=== PATIENT | female | born 1945 | race Caucasian/White ===

== ENCOUNTER 2020-07-29 11:20 | Inpatient (IN) | payer MEDICARE, SELFPAY ==
[2020-07-29] VITALS (16 sets, daily range): BP systolic 108–139; BP diastolic 51–97; PULSE 62–94; RESP 14–18; TEMP 36.7–37; O2SAT 92–99; BMI 24.7
--- NOTE | ~2020-07-29 | CT_ITS ---
EXAMINATION: CT abdomen pelvis w con EXAM DATE: 07/29/2020 12:16 INDICATION: Blood in stool. Low abdominal pain, bloating. TECHNIQUE: Spiral CT of the abdomen and pelvis was performed following intravenous injection of 100 m L Omnipaque 350. Axial, coronal and sagittal images were reviewed. The dose-length product (DLP) fo r this examination was 274.88 mGy-cm. The exposure was tailored according to patient size (auto mA e xposure control), and iterative reconstruction (ASIR) was used as additional dose reduction technique . Comparison is made to prior examination from 11/28/2015. FINDINGS: Again there is large hiatal hernia containing both the stomach. Compared to prior study loo p of the transverse colon is also now extending into this hernia. There is narrow hernia mouth, proba mercedes some chronic low-grade obstruction to the stomach and colon, but no dilated bowel or distended st omach on this exam. There is extensive perisigmoid fat stranding, most likely acute uncomplicated diverticulitis or colit is. Inflammatory cancer not excludable. No organized abscess or free intraperitoneal gas. Again there are multiple mesenteric lymph nodes which are upper limits of normal in size, improved in size sangeetha red to previous examination, but have adjacent fat stranding, inflammation. Could be mesenteric adeni tis or malignancy if patient has been treated with chemotherapy. The liver, spleen, adrenal glands and pancreas are unremarkable. Gallbladder is unremarkable. No bi liary obstruction. Again there is mild chronic bilateral hydronephrosis of uncertain underlying etio logy given normal ureter size and no nephrolithiasis. The uterus is not identified and has likely be en surgically resected. Some diffuse bladder wall thickening, could indicate chronic cystitis. Acute cystitis not excludable. There is no retroperitoneal or pelvic lymphadenopathy. There is moderate to severe scattered arteriosclerotic disease. Right basilar subsegmental atelectasis. There are no osteoblastic or osteolytic lesions identified. IMPRESSION: 1. Extensive pelvic inflammation likely acute diverticulitis or colitis. Inflammatory cancer not exc ludable. 2. Mesenteric lymphadenopathy with adjacent inflammation and interval decrease in size, most likely reactive, panniculitis (could be treated malignancy if there is such history). 3. Chronic mild bilateral hydronephrosis. 4. Intrathoracic stomach and also transverse colon likely low-grade chronic obstruction given the na rrow hernia mouth. Reviewed, dictated and finalized at location A. IMPRESSION: 1. Extensive pelvic inflammation likely acute diverticulitis or colitis. Infla mmatory cancer not excludable. 2. Mesenteric lymphadenopathy with adjacent inflammation and interval decrease in size, most likely reactive, panniculitis (could be treated malignancy if th ere is such history). 3. Chronic mild bilateral hydronephrosis. 4. Intrathoracic stomach and also transverse colon likely low-grade chronic ob struction given the narrow hernia mouth.
--- NOTE | 2020-07-29 11:38 | ED.ABDPAIN ---
HPI - Abdominal Pain General Chief Complaint: Abdominal Pain Stated Complaint: abd pain/bloody stools Time Seen by Provider: 07/29/20 11:31 Source: RN notes reviewed History of Present Illness HPI narrative: Patient presents to emergency department from home for abdominal pain. Patient states symptoms began 5 days ago pain is mild bilateral lower abdomen described as cramping. States is been associated with jellylike stool. She denies any fevers or chills chest pain shortness of breath vomiting or any other symptoms. States she was seen in the urgent care 4 days ago was diagnosed with UTI and started on Macrobid with no improvement of her symptoms. She last took Tylenol yesterday for her pain Related Data Home Medications Medication Instructions Recorded Confirmed atorvastatin PO 07/29/20 citalopram mg PO 07/29/20 famotidine PO 07/29/20 lisinopril PO 07/29/20 nitrofurantoin monohyd/m-cryst PO 07/29/20 omeprazole PO 07/29/20 Allergies Allergy/AdvReac Type Severity Reaction Status Date / Time morphine Allergy Unknown PARANOID Verified 07/29/20 11:44 Review of Systems Review of Systems: Narrative: Gen.: Denies fevers or chills ENT: Denies congestion Respiratory: Denies shortness of breath or cough CV: Denies chest pain or palpitations GI: See HPI denies burning, urgency, frequency or hematuria Musculoskeletal: Denies back pain or muscle pain Neuro: Denies numbness, tingling, weakness or focal weakness Skin: Denies rash Except as documented, all other systems reviewed and negative [facility] Past Medical History Medical History (Updated 07/29/20 @ 13:36 by Hilario Villalta DO) Diverticulitis Hypertension Social History Social History (Updated 07/29/20 @ 11:39 by Hilario Villalta DO) Smoking status: Never smoker Exam Narrative: Exam Narrative: APPEARANCE: No acute distress, nontoxic, resting in bed HEENT: Normocephalic, atraumatic, OMM RESPIRATORY: No respiratory distress, clear to auscultation bilaterally with no rhonchi wheezing or rales CARDIOVASCULAR: RRR s murmur ABDOMINAL: Soft, nondistended, tender palpation right lower quadrant left lower quadrant, no tenderness in right upper quadrant left upper quadrant, no rebound or guarding MUSCULOSKELETAl: Moves all extremities. No clubbing, cyanosis or edema. NEURO: Awake and alert. Following commands, speech normal, no focal deficits SKIN:: Warm, dry. Normal Color PSYCHIATRIC: Normal affect/mood Course Course Emergency Course: Discussed with JAXSON Wilkes for Dr. Vigil presentation work-up. Agrees with admission at this time Discussed with patient and family results of workup and diagnosis. Discussed need for admission. Patient and family understand and agree to current treatment plan Discussed with patient and family results of workup and diagnosis. Discussed need for admission. Patient and family understand and agree to current treatment plan Vital Signs Vital signs: Vital Signs Temperature 98.6 F 07/29/20 11:30 Pulse Rate 94 07/29/20 11:30 Respiratory Rate 16 07/29/20 11:30 Blood Pressure 139/69 07/29/20 11:30 Pulse Oximetry 99 07/29/20 11:30 Temperature 98.6 F 07/29/20 11:30 Pulse Rate 94 07/29/20 11:30 Respiratory Rate 16 07/29/20 11:30 Blood Pressure 133/68 07/29/20 13:16 Pulse Oximetry 96 07/29/20 13:16 MDM - Abdominal Pain Lab Data Result diagrams: 07/29/20 11:41 07/29/20 11:41 Labs: Lab Results 07/29/20 07/29/20 07/29/20 Range/Units 11:41 11:41 11:41 WBC 13.0 H (4.5-10.0) K/mm3 RBC 4.11 L (4.2-5.4) M/mm3 Hgb 13.3 (12.0-15.0) g/dL Hct 39.2 (37.0-47.0) % MCV 95.4 (80-100) fl MCH 32.4 (26-34) pg MCHC 33.9 (32-36) g/dl RDW 13.5 (11.5-14.5) % Plt Count 358 (150-375) k/mm3 MPV 10.3 (7.4-10.4) fl Immature Gran % (Auto) 0.4 (0-0.5) % Neut % (Auto) 78.3 H (45.5-73.1) % Lymph % (Auto) 11.1 L
[2020-07-29] MEDS: SODIUM CHLORIDE 0.9% IV 1,000 ML 999 ML IV CONT (11:47)
[2020-07-29 11:50] LABS: Basophils Percent Auto 0.3 % (0.2-1.2); Eosinophils Absolute Auto 0.1 K/mm3 (0-0.3); Eosinophils Percent Auto 0.8 % (0-4.4); Hematocrit 39.2 % (37.0-47.0); Hemoglobin 13.3 g/dL (12.0-15.0); Immature Granulocyte Absolute 0.05 K/mm3 (0.00-0.031); Immature Granulocyte Percent A 0.4 % (0-0.5); Lymphocytes Absolute Auto 1.44 K/mm3 (0.9-3.2); Lymphocytes Percent Auto 11.1 % (18.3-44.2); Mean Corpuscular HGB Conc 33.9 g/dl (32-36); Mean Corpuscular Hemoglobin 32.4 pg (26-34); Mean Corpuscular Volume 95.4 fl (80-100); Mean Platelet Volume 10.3 fl (7.4-10.4); Monocytes Absolute Auto 1.2 K/mm3 (0.1-0.6); Monocytes Percent Auto 9.1 % (2.6-8.5); Neutrophils Absolute Auto 10.2 K/mm3 (1.3-6.7); Neutrophils Percent Auto 78.3 % (45.5-73.1); Platelet Count Result 358 k/mm3 (150-375); Red Blood Count 4.11 M/mm3 (4.2-5.4); Red Cell Distribution Width 13.5 % (11.5-14.5)
[2020-07-29 12:00] LABS: INR 1.2; Partial Thromboplastin Time 30.1 SECONDS (22.3-36.8); Prothrombin Time 14.9 Seconds (11.1-14.7)
[2020-07-29 12:02] LABS: Alanine Aminotransferase 15 U/L (4-35); Albumin Level 4.2 g/dL (3.5-5.1); Alkaline Phosphatase 84 U/L (38-126); Anion Gap 11 mmol/L (8-16); Aspartate Amino Transferase 21 U/L (14-36); Bilirubin,Total 0.4 mg/dL (0.2-1.3); Blood Urea Nitrogen 13 mg/dL (7-17); Calcium 9.8 mg/dL (8.4-10.2); Carbon Dioxide 25 mmol/L (22-30); Chloride 105 mmol/L (98-107); Estimated CRCL calculation 43 ml/min; Estimated Glomerular Filt Rate > 60; Glucose 130 mg/dL (65-105); Lipase 51 U/L (23-300); Potassium 3.9 mmol/L (3.4-5.0); Sodium 141 mmol/L (137-145)
[2020-07-29 12:52] LABS: Add Urine Microscopic? YES; Appearance Urine Clear (Clear); Bilirubin Urine Negative (Negative); Blood Urine 1+ (Negative); Color Urine Yellow (Yellow); Glucose Urine UA Negative (Negative); Ketones Urine Trace mg/dL (Negative); Leukocyte Esterase Ur Negative LEU/UL (Negative); Mucus Urine Heavy /lpf; Nitrate Urine Negative (Negative); Protein Urine 1+ mg/dL (Negative); Specific Grav Ur > 1.060 (1.001-1.035); Squamous Epithelial Cell Urine Occasional /hpf (Few); Urobilinogen Urine Negative mg/dL (<2.0); WBC Urine 0-3 /hpf
[2020-07-29 13:43] LABS: Lactic Acid Reflex 0.9 mmol/L (0.7-2.1)
[2020-07-29] MEDS: SODIUM CHLORIDE 0.9% IV 1,000 ML 80 ML IV CONT (14:58)
--- NOTE | 2020-07-29 15:07 | ADMGEN ---
This patient, Carmen Jarquin, was admitted to Medical Room 250-01. Patient/family oriented to hospital policies and general routines including ID bracelet, bed and alarms, visiting hours, pain management, procedures, bathroom and other care routines, personal items, smoking policy, room service/diet, and visiting hours. Valuables list has been completed. Information on how to activate the Rapid Response Team has been discussed. Patient/Family are encouraged to report perceived risks to care and to ask questions if they do not understand what they are told or what they should do.
--- NOTE | 2020-07-29 21:00 | PM.IMHP ---
H&P: HPI History of Present Illness Date/Time: 07/29/20 21:00 Chief complaint: Abdominal pain. Narrative: Carmen Jarquin is a 75-year-old female with hypertension, hyperlipidemia, GERD, hiatal hernia, depression, anxiety, and iron deficiency anemia who presented to the emergency department earlier today with complaints of abdominal pain. She reports a gradual onset of diffuse lower abdominal pain since Friday which is described as cramping in nature and seems to come and go in waves of intensity. It is somewhat similar to when she had diverticulitis previously however when she has had diverticulitis it is settles more so in the left lower abdomen. She also reports feelings of constipation and tenesmus and with further questioning it sounds as though this has been going on for approximately 6 months. In fact she describes either rectal prolapse or prolapsed hemorrhoids, noting that she will feel soft tissue, out of the rectum when trying to have bowel movements, which she is able to reduce without pain. More recently she has been passing mucousy stools with small amounts of bright red blood, without pain. Despite taking fiber supplements she feels like she just has not had a good bowel movement for quite some time. Additionally it sounds as though she has had early satiety however she is wondering if perhaps it is due to a hiatal hernia that she was told about after endoscopy many years ago. She has not had fever, chills, sweats, nausea, or vomiting. No dysuria or vaginal discharge. She denies sick contacts, recent travel, and recent antibiotic use. Her weight has been stable and she has no known history of malignancy. She has had polyps removed previously and believes that she is overdue for her colonoscopy. Review of Systems Review of Systems: Narrative: Twelve systems were reviewed with pertinent positives and negatives as per HPI. No fever, chills, or sweats. No recent cold or flu symptoms. She denies chest pain shortness of breath. She reports depression anxiety for the past 3 years, after her her daughter of a fentanyl overdose. She denies harmful thoughts. No known history of malignancy. She had previously been evaluated for pulmonary nodules, which was apparently a postinfectious finding which resolved. Except as documented, all other systems were reviewed and are negative. [facility] Past Medical History Medical History (Updated 07/29/20 @ 23:37 by Katrin Paredes PA-C) Anxiety Bundle branch block Previous echocardiogram showed normal systolic function and mild diastolic dysfunction. Depression Diverticulitis Hiatal hernia Hyperlipidemia Hypertension Iron deficiency anemia Osteoarthritis Surgical History Surgical History (Updated 07/29/20 @ 23:34 by Katrin Paredes PA-C) History of arthroscopy of left knee History of cardiac catheterization (~2013) Unremarkable according to patient. History of carpal tunnel release History of cataract extraction History of fusion of cervical spine History of hysterectomy History of tonsillectomy and adenoidectomy Family History Family History Mother Heart failure Father Heart failure Myocardial infarct Daughter COPD (chronic obstructive pulmonary disease) Diverticulitis Social History Social History (Updated 07/29/20 @ 23:34 by Katrin Paredes PA-C) Social History: Surrogate decision maker: Rosalio Jarquin, spouse. Code status: Full code. Smoking status: Never smoker Alcohol intake: never Substance use: never Substance use type: does not use Additional living arrangements comments: Resides in [place] with her . They have 2 daughters, 1 as detailed above. 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 Gender identity (if verbalized by the patient): Female Sexual Orientation (if Verbalized by the Patient): Straight or H
[2020-07-29] MEDS: MELATONIN 5 MG TABLET PO (21:49)
[2020-07-30] MEDS: SODIUM CHLORIDE 0.9% IV 1,000 ML 80 ML IV CONT ×2 (05:16→16:52)
[2020-07-30 05:27] LABS: Basophils Percent Auto 0.4 % (0.2-1.2); Eosinophils Absolute Auto 0.1 K/mm3 (0-0.3); Eosinophils Percent Auto 1.8 % (0-4.4); Hematocrit 32.7 % (37.0-47.0); Hemoglobin 10.6 g/dL (12.0-15.0); Immature Granulocyte Absolute 0.04 K/mm3 (0.00-0.031); Immature Granulocyte Percent A 0.5 % (0-0.5); Lymphocytes Absolute Auto 1.11 K/mm3 (0.9-3.2); Lymphocytes Percent Auto 14.1 % (18.3-44.2); Mean Corpuscular HGB Conc 32.4 g/dl (32-36); Mean Corpuscular Hemoglobin 31.4 pg (26-34); Mean Corpuscular Volume 96.7 fl (80-100); Mean Platelet Volume 10.6 fl (7.4-10.4); Monocytes Absolute Auto 0.8 K/mm3 (0.1-0.6); Monocytes Percent Auto 9.8 % (2.6-8.5); Neutrophils Absolute Auto 5.8 K/mm3 (1.3-6.7); Neutrophils Percent Auto 73.4 % (45.5-73.1); Platelet Count Result 290 k/mm3 (150-375); Red Blood Count 3.38 M/mm3 (4.2-5.4); Red Cell Distribution Width 13.6 % (11.5-14.5); White Blood Count 7.9 K/mm3 (4.5-10.0)
[2020-07-30 05:42] LABS: Alanine Aminotransferase 10 U/L (4-35); Albumin Level 3.3 g/dL (3.5-5.1); Alkaline Phosphatase 60 U/L (38-126); Anion Gap 9 mmol/L (8-16); Aspartate Amino Transferase 18 U/L (14-36); Bilirubin,Total 0.3 mg/dL (0.2-1.3); Blood Urea Nitrogen 9 mg/dL (7-17); Calcium 8.5 mg/dL (8.4-10.2); Carbon Dioxide 27 mmol/L (22-30); Chloride 108 mmol/L (98-107); Estimated CRCL calculation 43 ml/min; Estimated Glomerular Filt Rate > 60; Glucose 100 mg/dL (65-105); Potassium 3.5 mmol/L (3.4-5.0); Sodium 144 mmol/L (137-145)
[2020-07-30 05:47] VITALS: BP 157/67; PULSE 75; RESP 18; TEMP 36.8; O2SAT 97
[2020-07-30] MEDS: FAMOTIDINE 20 MG TABLET 40 MG PO (09:04)
[2020-07-30] MEDS: THERAPEUTIC MULTIVITAMINS/MINERALS TAB (*BKC) 1 TABLET PO (09:04)
[2020-07-30] MEDS: PANTOPRAZOLE SOD SESQUIHYDRATE 20 MG TAB PO (09:04)
[2020-07-30] MEDS: CITALOPRAM HYDROBROMIDE 20 MG TABLET 40 MG PO (09:04)
[2020-07-30] MEDS: ATORVASTATIN 40 MG TABLET 80 MG PO (09:05)
[2020-07-30] MEDS: FERROUS SULFATE 324 MG TABLET PO (09:05)
[2020-07-30] MEDS: lisinopriL 10 MG TABLET PO (09:05)
--- NOTE | 2020-07-30 11:36 | PM.IMPN ---
Progress Note: A&P Assessment and Plan (1) Abdominal pain: Code(s): R10.9 - Unspecified abdominal pain Status: Acute Assessment and Plan: [place] to be related to CT findings suggestive of possible diverticulitis. Dr. Roy has been consulted and appreciate recommendations. Patient placed on Zosyn from the ED. Pain has somewhat improved, but still present. Tolerating CLD thus far. Leukocytosis has resolved. Continue with IV zosyn Continue CLD Pain control PRN Await further recommendations from GI Monitor (2) Abnormal computed tomography of abdomen and pelvis: Code(s): R93.5 - Abnormal findings on diagnostic imaging of other abdominal regions, including retroperitoneum Status: Acute Assessment and Plan: Given her history, presentation and CT a/p findings, extensive pelvic inflammation felt to be related to suspected diverticulitis. Also there are findings of intrathoracic stomach and transverse colon which will likely warrant a possible outpatient CT surgeon referral for further management; has been observed in the past and treated with PPI, although it sounds as if her upper GI symptoms have been slowly worsening. Chronic low grade obstruction noted. She also describes a possible rectal prolapse or hemorrhoids; will defer further management to GI, but will also likely benefit from outpatient referral to a surgeon for further management. See above a/p (3) Dehydration: Code(s): E86.0 - Dehydration Status: Acute Assessment and Plan: Patient tolerating diet okay. Appears more euvolemic today Will likely d/c fluids tomorrow if continued tolerance of diet Monitor (4) Hypertension: Code(s): I10 - Essential (primary) hypertension Status: Acute Assessment and Plan: BP slightly elevated in 150s sys prior to her morning meds this morning Continue home antihypertensives Monitor (5) Hyperlipidemia: Code(s): E78.5 - Hyperlipidemia, unspecified Status: Acute Assessment and Plan: LFTs WNL continue home statin (6) Hiatal hernia: Code(s): K44.9 - Diaphragmatic hernia without obstruction or gangrene Status: Acute Assessment and Plan: Known hiatal hernia which appears to have worsened on CT imaging. Please see #2. GI following and appreciate recommendation (7) Iron deficiency anemia: Code(s): D50.9 - Iron deficiency anemia, unspecified Status: Acute Assessment and Plan: Appears to be stable. No signs of acute blood loss Continue home iron supplementation (8) Anxiety: Code(s): F41.9 - Anxiety disorder, unspecified Status: Acute Assessment and Plan: No acute issues at this time Continue home medication (9) Depression: Code(s): F32.9 - Major depressive disorder, single episode, unspecified Status: Acute Assessment and Plan: No acute issues at this time Continue home medication Subjective Date/time seen: 07/30/20 11:36 Interval history: Patient is a 75 yo F with hypertension, hyperlipidemia, GERD, hiatal hernia, depression, anxiety, and iron deficiency anemia who is seen in follow up for treatment of suspected diverticulitis. Patient states she is feeling somewhat better today, but still having lower abdominal pain. Again notes that this is somewhat different pain from previous diverticulitis episodes as the pain extends across the lower abdomen rather than just her left lower abdomen. She also notes having some sensation like food gets stuck in her midsternal area in he chest when she eats that has been going on for some
--- NOTE | 2020-07-30 12:27 | WPDGICN ---
Assessment and Plan Assessment and plan (1) Diverticulitis: Code(s): K57.92 - Diverticulitis of intestine, part unspecified, without perforation or abscess without bleeding Status: Acute Assessment and Plan: most likely diverticulitis/colitis based on previous history, malignancy less likely since she had a colonoscopy ~ 4 years ago but still will proceed with one in 3-4 weeks as outpatient once infection/inflammation is gone liquid diet for now and iv antibiotics (2) Abdominal pain: Code(s): R10.9 - Unspecified abdominal pain Status: Acute Assessment and Plan: medical treatment (3) Abnormal computed tomography of abdomen and pelvis: Code(s): R93.5 - Abnormal findings on diagnostic imaging of other abdominal regions, including retroperitoneum Status: Acute (4) Hiatal hernia: Code(s): K44.9 - Diaphragmatic hernia without obstruction or gangrene Status: Acute Assessment and Plan: large hiatal hernia can explain upper symptoms. Will also do EGD same time with colonoscopy and most likely will refer to see a surgeon in [facility] to repair hernia on ppi and pepcid for now (5) Dysphagia: Code(s): R13.10 - Dysphagia, unspecified Status: Acute GI Consult Note Consult date/time: 07/30/20 12:27 Reason for consult: abdominal pain, diverticulitis HPI: Carmen Jarquin is a 75 year old female with history of hypertension, hyperlipidemia, GERD, hiatal hernia, diverticulitis (had total of 2 attacks and last one about 3-4 years ago) and iron deficiency anemia who came to emergency department with complaints of abdominal pain. Pain started almost 6 days ago and initially she went to urgent care, was told that probably had UTI and given macrobid but did not get much better. Pain was cramping in nature and intermittent, this pain was localized in pelvic and lower abdomen area slightly different to previous attack of diverticulitis. Also constipation and tenesmus for few months, she thinks that may have rectal prolapse describing soft tissue protruding out of the rectum when trying to have bowel movements that she can reduce without pain. CT scan showed extensive pelvic inflammation likely acute diverticulitis or colitis. Inflammatory cancer not excludable, mesenteric lymphadenopathy with adjacent inflammation and interval decrease in size, most likely reactive, intrathoracic stomach and also transverse colon likely low-grade chronic obstruction given the narrow hernia mouth. She had 3-4 colonoscopies, several years ago had large polyp removed and her GI doctor repeated colonoscopy after 2 years, her last colonoscopy ~ 4 years ago when had anemia. Also had EGD about 2 years ago, had hiatal hernia and using famotidine and omeprazole because gerd symptoms, sometimes feeling food does not go down. Review of Systems Constitutional: Constitutional: Denies headache(s) and Denies weakness Eyes: Eyes: Denies blurry vision ENT: Reports Normal hearing present, Denies headache(s) and Denies neck pain Cardiovascular: Cardiovascular: Denies chest pain and Denies dyspnea Respiratory: Respiratory: Denies dyspnea Gastrointestinal: Gastrointestinal: Reports no additional gastrointestinal complaints Genitourinary: Genitourinary: Denies dysuria Musculoskeletal: Musculoskeletal: Denies neck pain Integumentary/Breasts: Skin/Breast: Denies dry skin Neurologic: Reports Normal hearing present, Denies headache(s) and Denies weakness Psychiatric: Psychiatric: Denies anxiety Endocrine: Endocrine: Denies change in body appearance Hematologic/Lymphatic: Hematologic/Lymphatic: Denies easy bleeding Allergic/Immunologic: Allergic/Immunologic: Denies urticaria PMFSH Past Medical History Medical History (Updated 07/30/20 @ 12:35 by Ga Morle MD) Anxiety Bundle branch block Previous echocardiogram showed normal systolic function and mild diastolic dysfunction. Depression D
[2020-07-30 14:00] VITALS: BP 108/68; PULSE 76; RESP 14; TEMP 36.9; O2SAT 95
[2020-07-30] MEDS: ACETAMINOPHEN 325 MG TABLET 650 MG PO (16:56)
[2020-07-30 21:03] VITALS: BP 118/56; PULSE 77; RESP 16; TEMP 36.8; O2SAT 100
[2020-07-31 05:28] LABS: Basophils Percent Auto 0.5 % (0.2-1.2); Eosinophils Absolute Auto 0.2 K/mm3 (0-0.3); Eosinophils Percent Auto 2.3 % (0-4.4); Hematocrit 32.3 % (37.0-47.0); Hemoglobin 10.6 g/dL (12.0-15.0); Immature Granulocyte Absolute 0.04 K/mm3 (0.00-0.031); Immature Granulocyte Percent A 0.5 % (0-0.5); Lymphocytes Percent Auto 18.1 % (18.3-44.2); Mean Corpuscular HGB Conc 32.8 g/dl (32-36); Mean Corpuscular Hemoglobin 31.7 pg (26-34); Mean Corpuscular Volume 96.7 fl (80-100); Mean Platelet Volume 10.5 fl (7.4-10.4); Monocytes Absolute Auto 0.7 K/mm3 (0.1-0.6); Monocytes Percent Auto 8.4 % (2.6-8.5); Neutrophils Absolute Auto 5.4 K/mm3 (1.3-6.7); Neutrophils Percent Auto 70.2 % (45.5-73.1); Platelet Count Result 303 k/mm3 (150-375); Red Blood Count 3.34 M/mm3 (4.2-5.4); Red Cell Distribution Width 13.6 % (11.5-14.5); White Blood Count 7.7 K/mm3 (4.5-10.0)
[2020-07-31 05:52] VITALS: BP 123/59; PULSE 72; RESP 18; TEMP 36.7; O2SAT 99
[2020-07-31 05:54] LABS: Anion Gap 6 mmol/L (8-16); Blood Urea Nitrogen 6 mg/dL (7-17); Calcium 8.5 mg/dL (8.4-10.2); Carbon Dioxide 26 mmol/L (22-30); Chloride 111 mmol/L (98-107); Estimated CRCL calculation 68 ml/min; Estimated Glomerular Filt Rate > 60; Glucose 102 mg/dL (65-105); Magnesium 1.9 mg/dL (1.6-2.3); Potassium 3.3 mmol/L (3.4-5.0); Sodium 143 mmol/L (137-145)
[2020-07-31] MEDS: SODIUM CHLORIDE 0.9% IV 1,000 ML 80 ML IV CONT (06:03)
[2020-07-31] MEDS: PANTOPRAZOLE SOD SESQUIHYDRATE 20 MG TAB PO (08:43)
[2020-07-31] MEDS: FERROUS SULFATE 324 MG TABLET PO (08:43)
[2020-07-31] MEDS: POTASSIUM CHLORIDE 20 MEQ PACKET (FOR LIQUID) 40 MEQ PO (08:43)
[2020-07-31] MEDS: lisinopriL 10 MG TABLET PO (08:43)
[2020-07-31] MEDS: ATORVASTATIN 40 MG TABLET 80 MG PO (08:43)
[2020-07-31] MEDS: THERAPEUTIC MULTIVITAMINS/MINERALS TAB (*BKC) 1 TABLET PO (08:43)
[2020-07-31] MEDS: FAMOTIDINE 20 MG TABLET 40 MG PO (08:43)
[2020-07-31] MEDS: CITALOPRAM HYDROBROMIDE 20 MG TABLET 40 MG PO (08:44)
--- NOTE | 2020-07-31 10:14 | PM.IMPN ---
Progress Note: A&P Assessment and Plan (1) Abdominal pain: Code(s): R10.9 - Unspecified abdominal pain Status: Acute Assessment and Plan: [place] to be related to CT findings suggestive of possible diverticulitis. Dr. Roy has been consulted and appreciate recommendations. Patient placed on Zosyn from the ED. Clinical improvement again today. Tolerating FLD thus far. Leukocytosis has resolved. Discussed with Dr. Roy. Continue with IV zosyn Will advance to soft, low fiber diet this afternoon If tolerating diet and continued clinical improvement, then possible discharge in 1-2 days Pain control PRN Await further recommendations from GI Monitor (2) Abnormal computed tomography of abdomen and pelvis: Code(s): R93.5 - Abnormal findings on diagnostic imaging of other abdominal regions, including retroperitoneum Status: Acute Assessment and Plan: Given her history, presentation and CT a/p findings, extensive pelvic inflammation felt to be related to suspected diverticulitis. Also there are findings of intrathoracic stomach and transverse colon which will likely warrant a possible outpatient CT surgeon referral for further management; has been observed in the past and treated with PPI, although it sounds as if her upper GI symptoms have been slowly worsening over the past several weeks. Chronic low grade obstruction noted. She also describes a possible rectal prolapse or hemorrhoids; will defer further management to GI, but will also likely benefit from outpatient referral to a surgeon for further management. See above a/p (3) Dehydration: Code(s): E86.0 - Dehydration Status: Acute Assessment and Plan: Patient tolerating diet okay. Appears euvolemic today D/c IV fluids today Monitor (4) Hypertension: Code(s): I10 - Essential (primary) hypertension Status: Acute Assessment and Plan: BP 120s sys this mroning Continue home antihypertensives Monitor (5) Hyperlipidemia: Code(s): E78.5 - Hyperlipidemia, unspecified Status: Acute Assessment and Plan: continue home statin (6) Hiatal hernia: Code(s): K44.9 - Diaphragmatic hernia without obstruction or gangrene Status: Acute Assessment and Plan: Known hiatal hernia which appears to have worsened on CT imaging. Please see #2. GI following and appreciate recommendation (7) Iron deficiency anemia: Code(s): D50.9 - Iron deficiency anemia, unspecified Status: Acute Assessment and Plan: Appears to be stable. No signs of acute blood loss Continue home iron supplementation (8) Anxiety: Code(s): F41.9 - Anxiety disorder, unspecified Status: Acute Assessment and Plan: No acute issues at this time Continue home medication (9) Depression: Code(s): F32.9 - Major depressive disorder, single episode, unspecified Status: Acute Assessment and Plan: No acute issues at this time Continue home medication Subjective Date/time seen: 07/31/20 10:14 Interval history: Patient is a 75 yo F with hypertension, hyperlipidemia, GERD, hiatal hernia, depression, anxiety, and iron deficiency anemia who is seen in follow up for treatment of suspected diverticulitis. Patient states she is feeling much better today; pain has much improved. Still present occasionally, but overall much improvement. She is wishing to advance her diet as her pain has improved and does not like the taste of her liquid diet; otherwise tolerating diet thus far when she does eat her meals. She had a more formed BM tod
--- NOTE | 2020-07-31 10:54 | WPDGIPROGNO ---
Progress Note: A&P Assessment and Plan (1) Diverticulitis: Code(s): K57.92 - Diverticulitis of intestine, part unspecified, without perforation or abscess without bleeding Status: Acute Assessment and Plan: doing better, on iv antibiotics ok to advance to soft diet will need colonoscopy in about 3-4 weeks (2) Abdominal pain: Code(s): R10.9 - Unspecified abdominal pain Status: Acute Assessment and Plan: improving (3) Abnormal computed tomography of abdomen and pelvis: Code(s): R93.5 - Abnormal findings on diagnostic imaging of other abdominal regions, including retroperitoneum Status: Acute (4) Hiatal hernia: Code(s): K44.9 - Diaphragmatic hernia without obstruction or gangrene Status: Acute Assessment and Plan: large hernia found in CT scan with chronic changes, probably explaining upper gi symptoms will do egd with her colonoscopy in few weeks and also refer to surgeon in [place] for possible hernia repair (5) Dysphagia: Code(s): R13.10 - Dysphagia, unspecified Status: Acute Subjective Date/time seen: 07/31/20 10:54 Interval history: feeling better today with less pain, she would like to eat more today Review of Systems Review of Systems: All systems reviewed & are unremarkable except as noted in HPI and below Exam Const: General: comfortable and no acute distress HENMT: General nose exam: Normal nares present Eyes: General: appearance normal, both eyes and all related structures Neck: Neck: no JVD Resp: Auscultation: clear to auscultation bilaterally Cardio: Rate: regular rate Rhythm: regular rhythm GI: Inspection: non-distended GI Palp: Yes Soft to palpation and Yes Tenderness to palpation present (GI) (less tender today, no guarding) Auscultation: normal bowel sounds Skin: General skin exam: normal color Neuro: General: gait normal Speech: normal speech Extrem: General: normal to inspection Psych: Mental Status: mental status grossly normal Objective Data Vital Signs Vital Signs: Vital Signs - 24 hr 07/30/20 14:00 07/30/20 21:03 07/31/20 05:52 Temperature 98.5 F 98.2 F 98.0 F Pulse Rate 76 77 72 Respiratory Rate 14 16 18 Blood Pressure 108/68 118/56 L 123/59 L Pulse Oximetry 95 100 99 Intake/Output Intake/Output: Intake & Output 07/28/20 07/29/20 07/30/20 07/31/20 23:59 23:59 23:59 23:59 Intake Total 1860 4655 1490 Output Total 1050 Balance 1860 4655 440 Meds/Results Medications: Active Medications Generic Name Dose Route Start Last Admin Trade Name Freq PRN Reason Stop Dose Admin Acetaminophen 650 mg 07/30/20 07:30 07/30/20 16:56 Tylenol Tablet PO 650 mg Q6H PRN Administration Mild Pain (1-3) or Fever Atorvastatin Calcium 80 mg 07/30/20 09:00 07/31/20 08:43 Lipitor PO 80 mg DAILY LARISA Administration Citalopram Hydrobromide 40 mg 07/30/20 09:00 07/31/20 08:44 Celexa PO 40 mg DAILY LARISA Administration Famotidine 40 mg 07/30/20 09:00 07/31/20 08:43 Pepcid PO 40 mg DAILY LARISA Administration Ferrous Sulfate 324 mg 07/30/20 08:00 07/31/20 08:43 Ferrous Sulfate PO 324 mg DAILY@0800 LARISA Administration Piperacillin/Tazobactam/Dextrose 3.375 gm in 50 mls @ 100 mls/hr 07/29/20 18:00 07/31/20 06:37 Zosyn 3.375 Gm/D5w 50ml Pm IVPB Infused Q6H LARISA Infusion Lisinopril 10 mg 07/30/20 09:00 07/31/20 08:43 Prinivil PO 10 mg DAILY LARISA Administration Melatonin 5 mg 07/29/20 23:42 Melatonin PO HS PRN Sleep Multivitamins/Calcium 1 tablet 07/30/20 09:00 07/31/20 08:43 Therapeutic Multivitamins/Minerals PO 1 tablet DAILY LARISA Administration Pantoprazole Sodium 20 mg 07/30/20 09:00 07/31/20 08:43 Protonix PO 20 mg QAM LARISA Administration Radiology Results: ITS Impressions Abdomen/Pelvis CT 07/29/20 12:23 IMPRESSION: 1. Extensive pelvic inflammation likely acute div
[2020-07-31 14:00] VITALS: BP 139/84; PULSE 75; RESP 17; TEMP 36.6; O2SAT 97
[2020-07-31] MEDS: ACETAMINOPHEN 325 MG TABLET 650 MG PO (15:50)
[2020-07-31 20:00] VITALS: BP 151/65; PULSE 72; RESP 20; TEMP 37.4; O2SAT 96
[2020-07-31] MEDS: MELATONIN 5 MG TABLET PO (21:12)
[2020-08-01 04:00] VITALS: BP 158/84; PULSE 71; RESP 18; TEMP 36.5; O2SAT 94
[2020-08-01 06:11] LABS: Basophils Percent Auto 0.4 % (0.2-1.2); Eosinophils Absolute Auto 0.3 K/mm3 (0-0.3); Eosinophils Percent Auto 2.9 % (0-4.4); Hematocrit 33.8 % (37.0-47.0); Hemoglobin 11.3 g/dL (12.0-15.0); Immature Granulocyte Absolute 0.04 K/mm3 (0.00-0.031); Immature Granulocyte Percent A 0.4 % (0-0.5); Lymphocytes Absolute Auto 1.74 K/mm3 (0.9-3.2); Mean Corpuscular HGB Conc 33.4 g/dl (32-36); Mean Corpuscular Hemoglobin 31.5 pg (26-34); Mean Corpuscular Volume 94.2 fl (80-100); Mean Platelet Volume 10.3 fl (7.4-10.4); Monocytes Absolute Auto 0.8 K/mm3 (0.1-0.6); Monocytes Percent Auto 7.9 % (2.6-8.5); Neutrophils Absolute Auto 6.8 K/mm3 (1.3-6.7); Neutrophils Percent Auto 70.4 % (45.5-73.1); Platelet Count Result 355 k/mm3 (150-375); Red Blood Count 3.59 M/mm3 (4.2-5.4); Red Cell Distribution Width 13.4 % (11.5-14.5); White Blood Count 9.7 K/mm3 (4.5-10.0)
[2020-08-01 06:15] LABS: Anion Gap 7 mmol/L (8-16); Blood Urea Nitrogen 9 mg/dL (7-17); Calcium 9.2 mg/dL (8.4-10.2); Carbon Dioxide 29 mmol/L (22-30); Chloride 105 mmol/L (98-107); Estimated CRCL calculation 59 ml/min; Estimated Glomerular Filt Rate > 60; Glucose 109 mg/dL (65-105); Potassium 3.8 mmol/L (3.4-5.0); Sodium 141 mmol/L (137-145)
[2020-08-01] MEDS: lisinopriL 10 MG TABLET PO (08:38)
[2020-08-01] MEDS: CITALOPRAM HYDROBROMIDE 20 MG TABLET 40 MG PO (08:38)
[2020-08-01] MEDS: PANTOPRAZOLE SOD SESQUIHYDRATE 20 MG TAB PO (08:38)
[2020-08-01] MEDS: FERROUS SULFATE 324 MG TABLET PO (08:38)
[2020-08-01] MEDS: THERAPEUTIC MULTIVITAMINS/MINERALS TAB (*BKC) 1 TABLET PO (08:38)
[2020-08-01] MEDS: ATORVASTATIN 40 MG TABLET 80 MG PO (08:38)
[2020-08-01] MEDS: FAMOTIDINE 20 MG TABLET 40 MG PO (08:38)
--- NOTE | 2020-08-01 11:48 | PM.DS ---
DS: Admitting Diagnosis Admitting Diagnosis Admitting Diagnosis: Abdominal pain. DS: Discharge Diagnosis Discharge Diagnosis (1) Diverticulitis: Code(s): K57.92 - Diverticulitis of intestine, part unspecified, without perforation or abscess without bleeding Status: Acute Assessment and Plan: Abd pain felt to be related to CT findings suggestive of possible diverticulitis. Dr. Roy has been consulted and appreciate recommendations. Patient placed on Zosyn from the ED. Clinical improvement again today, although noting some non-bloody diarrhea today; pain is minimal today. Tolerating soft/low fiber diet thus far, but does not like the food. Leukocytosis has resolved. Will switch to augmentin at discharge through 08/07 to complete 10 days of antibiotic therapy Will continue soft, low fiber diet at discharge; can switch to high fiber after ~2 weeks Likely discharge today if okay from GI standpoint Pain control with tylenol F/u with GI and new PCP, Cinthia Muniz, SOFTWARE PRODUCT MANAGER after discharge (2) Abnormal computed tomography of abdomen and pelvis: Code(s): R93.5 - Abnormal findings on diagnostic imaging of other abdominal regions, including retroperitoneum Status: Acute Assessment and Plan: Given her history, presentation and CT a/p findings, extensive pelvic inflammation felt to be related to suspected diverticulitis. Also there are findings of intrathoracic stomach and transverse colon which will likely warrant a possible outpatient CT surgeon referral for further management; has been observed in the past and treated with PPI, although it sounds as if her upper GI symptoms have been slowly worsening over the past several weeks. Chronic low grade obstruction noted. She also describes a possible rectal prolapse or hemorrhoids; will defer further management to GI, but will also likely benefit from outpatient referral to a surgeon for further management if this continues to be an issue. See above a/p (3) Dehydration: Code(s): E86.0 - Dehydration Status: Acute Assessment and Plan: Patient tolerating diet okay. Appears euvolemic today Monitor (4) Hypertension: Code(s): I10 - Essential (primary) hypertension Status: Acute Assessment and Plan: BP 150s sys this mroning Continue home antihypertensives F/u with PCP (5) Hyperlipidemia: Code(s): E78.5 - Hyperlipidemia, unspecified Status: Acute Assessment and Plan: continue home statin (6) Hiatal hernia: Code(s): K44.9 - Diaphragmatic hernia without obstruction or gangrene Status: Acute Assessment and Plan: Known hiatal hernia which appears to have worsened on CT imaging. Please see #2. GI following and appreciate recommendation (7) Iron deficiency anemia: Code(s): D50.9 - Iron deficiency anemia, unspecified Status: Acute Assessment and Plan: Appears to be stable. No signs of acute blood loss Continue home iron supplementation (8) Anxiety: Code(s): F41.9 - Anxiety disorder, unspecified Status: Acute Assessment and Plan: No acute issues at this time Continue home medication (9) Depression: Code(s): F32.9 - Major depressive disorder, single episode, unspecified Status: Acute Assessment and Plan: No acute issues at this time Continue home medication DS: Summary Hospital Course Reason for hospitalization: Abdominal pain, diverticulitis Hospital Course: Patient is a 75 yo F with history of hypertension, hyperlipidemia, GERD, hiatal hernia, depression, anxiety, and iron deficiency anem
[2020-08-01] MEDS: PHENYLEPH/SHARK OIL/MO/PETROL CREAM 26 GM 1 APPLIC RECTAL (13:53)
[2020-08-01 14:00] VITALS: BP 112/70; PULSE 78; RESP 15; TEMP 37.2; O2SAT 96
== END 2020-08-01 15:17 | disposition home or self-care (01) | DRG 392 ==
LOC: ANHED 13:36 → ANH2MED 13:46
PROVIDERS: Physician Assistant; Admitting Provider Family Medicine; Emergency Provider Emergency Medicine; PCP Registered Nurse; Visit Provider Internal Medicine
DX: K57.32 Diverticulitis of large intestine without perforation or abscess without bleeding (principal); K44.0 Diaphragmatic hernia with obstruction, without gangrene; R93.5 Abnormal findings on diagnostic imaging of other abdominal regions, including retroperitoneum; E86.0 Dehydration; E78.5 Hyperlipidemia, unspecified; I10 Essential (primary) hypertension; D50.9 Iron deficiency anemia, unspecified; F41.8 Other specified anxiety disorders; K21.9 Gastro-esophageal reflux disease without esophagitis; M19.90 Unspecified osteoarthritis, unspecified site; R13.10 Dysphagia, unspecified; Z90.710 Acquired absence of both cervix and uterus; Z98.1 Arthrodesis status; Z98.42 Cataract extraction status, left eye; Z98.41 Cataract extraction status, right eye
CPT/HCPCS: 36415; 74177; 80048; 80053; 81001; 83605; 83690; 83735; 85025; 85610; 85730; 87040; 96361; 96365; 96366; 96367; 96376; 99285; A9270; G0378; J0131; J2543; J7030; Q9967

== ENCOUNTER 2020-09-05 01:13 | Outpatient (CLI) | payer MEDICARE, SELFPAY ==
[2020-09-05 19:48] LABS: SARS-CoV-2 RNA PCR Negative
== END 2020-09-05 01:14 | disposition home or self-care (01) ==
LOC: ANHCOVIDDT 01:13
PROVIDERS: PCP Registered Nurse; Visit Provider Internal Medicine Gastroenterology
DX: Z01.818 Encounter for other preprocedural examination (principal); Z20.828 Contact with and (suspected) exposure to other viral communicable diseases
CPT/HCPCS: 87635; C9803; U0003

== ENCOUNTER 2020-09-08 00:42 | Day surgery (SDC) | payer MEDICARE, SELFPAY ==
[2020-09-04 13:25] VITALS: BMI 24.0
--- NOTE | 2020-09-08 09:49 | WPDANESEPPF ---
Anes - Initial Pre Proc Eval Procedure: Operation Date: 09/08/20 12:00 Proposed Procedures p Esophagogastroduodenoscopy & Colonoscopy - Ga Morel MD Date/Time: 09/08/20 09:49 Surgeon: Ga Morel MD Pre Op Diagnosis: dysphagia, diverticulitis Patient Data Age: 75 Gender: F Height: 1.52 m Weight: 56 kg Allergies Allergy/AdvReac Type Severity Reaction Status Date / Time morphine Allergy Unknown PARANOID Verified 09/08/20 11:10 Home Medications Medication Instructions Recorded Confirmed Type Centrum Silver Women 1 tablet PO DAILY 07/29/20 09/04/20 History atorvastatin [Lipitor] 80 mg PO DAILY 07/29/20 09/04/20 History citalopram [Celexa] 40 mg PO DAILY 07/29/20 09/04/20 History famotidine [Pepcid] 40 mg PO DAILY 07/29/20 09/04/20 History ferrous sulfate 324 mg PO DAILY 07/29/20 09/04/20 History lisinopril [Prinivil] 10 mg PO DAILY 07/29/20 09/04/20 History melatonin 5 mg PO HS PRN 07/29/20 09/04/20 History omeprazole 20 mg PO DAILY 07/29/20 09/04/20 History Patient hx anesthesia problems: none Family hx anesthesia problems: none PMFSH Past Medical History Medical History (Updated 09/08/20 @ 09:50 by Ilir Dooley MD) Anxiety Bundle branch block Previous echocardiogram showed normal systolic function and mild diastolic dysfunction. Depression Diverticulitis Diverticulitis Dysphagia Hiatal hernia Hyperlipidemia Hypertension Incontinence of feces Iron deficiency anemia Osteoarthritis Surgical History Surgical History History of arthroscopy of left knee History of cardiac catheterization (~2013) Unremarkable according to patient. History of carpal tunnel release History of cataract extraction History of fusion of cervical spine History of hysterectomy History of tonsillectomy and adenoidectomy Family History Family History Mother Heart failure Father Heart failure Myocardial infarct Daughter COPD (chronic obstructive pulmonary disease) Diverticulitis Social History Social History (Reviewed 10/28/20 @ 09:15 by MADELINE Valadez Social History: Surrogate decision maker: Rosalio Jarquin, spouse. Code status: Full code. Smoking status: Never smoker Alcohol intake: never Substance use: never Substance use type: does not use Living arrangements: with family Additional living arrangements comments: Resides in [place] with her . They have 2 daughters, 1 as detailed above. 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 Gender identity (if verbalized by the patient): Female Spiritual care concerns: No Anes - Eval Final PreProcedure Day of Procedure 09/08/20 09:49 Patient weight: overweight Heart: regular rate and rhythm Lungs: clear to auscultation and normal air movement Airway: Mallampati scale class II Neurological: alert and oriented Last oral intake: >/= 8 hours ASA classification: II Emergent: no Anesthetic plan: proceed Anesthesia type and monitoring: general GIVS Informed Consent: The patient's anesthetic plan and its attendant risks and benefits were discussed with the patient/family/POA. Questions were solicited and answers provided to the satisfaction of the patient/family/POA.
[2020-09-08 11:10] VITALS: BP 117/54; PULSE 92; RESP 16; TEMP 36.7; O2SAT 99
[2020-09-08] MEDS: LACTATED RINGERS 1,000 ML 150 ML IV CONT (11:19)
--- NOTE | 2020-09-08 12:26 | WPDHPUPDATE1 ---
History and Physical Update Update Date/Time: 09/08/20 12:26 History and Physical has been reviewed, including an updated exam of the patient. There are NO changes in the patient's condition. Risks, benefits, and alternatives have been discussed and questions answered. Patient agrees to proceed with procedure.
--- NOTE | 2020-09-08 13:04 | SUR.OPER ---
EGD START 1236, END 1240 COLONOSCOPY START 1244, END 1302
[2020-09-08 13:08] VITALS: BP 116/55; PULSE 73; RESP 20; O2SAT 100
[2020-09-08 13:18] VITALS: BP 137/63; PULSE 68; RESP 18; O2SAT 99
[2020-09-08 13:28] VITALS: BP 126/65; PULSE 63; RESP 15; O2SAT 100
== END 2020-09-08 13:48 | disposition home or self-care (01) ==
PROVIDERS: PCP Registered Nurse; Visit Provider Internal Medicine Gastroenterology
PROC: 0DJ08ZZ Inspection of Upper Intestinal Tract, Via Natural or Artificial Opening Endoscopic (ICD-10-PCS; CPT 43235; principal; 2020-09-08 12:00)
DX: K57.30 Diverticulosis of large intestine without perforation or abscess without bleeding (principal); K64.8 Other hemorrhoids; Z87.19 Personal history of other diseases of the digestive system; R13.10 Dysphagia, unspecified; K44.9 Diaphragmatic hernia without obstruction or gangrene; K29.70 Gastritis, unspecified, without bleeding; I10 Essential (primary) hypertension; E78.5 Hyperlipidemia, unspecified; D50.9 Iron deficiency anemia, unspecified; F41.8 Other specified anxiety disorders; Z98.1 Arthrodesis status
CPT/HCPCS: 45378; 43239; 88305; C9803; J2704; J7120; U0003

== ENCOUNTER → 2020-10-04 12:09 | Outpatient (CLI) | payer MEDICARE, SELFPAY ==
--- NOTE | ~2020-10-04 | MM_ITS ---
EXAMINATION: MM screening bar BI w ismael HISTORY: Screening TECHNIQUE: Craniocaudal and mediolateral oblique 3-D tomosynthesis images were obtained and synthetic 2-D images were generated. CAD analysis was submitted and interpreted. COMPARISON: No prior mammogram is available for comparison at this institution. BREAST PARENCHYMAL COMPOSITION: There are scattered areas of fibroglandular density. FINDINGS: There is focal asymmetry laterally in the right breast on CC view. No mammographic evidence for malignancy in the left breast. IMPRESSION: 1. Focal asymmetry lateral aspect of the right breast. 2. Additional mammographic views and possible breast ultrasound are recommended. BI-RADS Category 0: Incomplete: Needs additional imaging evaluation. Reviewed, dictated and finalized at location D. SEPARATOR IMPRESSION: 1. Focal asymmetry lateral aspect of the right breast. 2. Additional mammographic views and possible breast ultrasound are recommended . BI-RADS Category 0: Incomplete: Needs additional imaging evaluation.
--- NOTE | ~2020-10-04 | DEXA_ITS ---
Bone Density Report Name: Carmen Jarquin Age: 75 Sex: Female Ethnicity: White Date of : 1945 Indication: postmenopausal; screening for osteoporosis; height loss; hysterectomy; Referring Provider: Cristy, Cinthia Study: Bone densitometry was performed. Exam Date: October 04, 2020 Accession number: [id number] Bone Density: Region BMD T-score Z-score Classification AP Spine (L1-L4) 1.070 0.2 2.6 Normal Femoral Neck (Left) 0.657 -1.7 0.4 Osteopenia Total Hip (Left) 0.860 -0.7 1.1 Normal Femoral Neck (Right) 0.676 -1.6 0.5 Osteopenia Total Hip (Right) 0.835 -0.9 0.9 Normal Total Hip Mean 0.848 -0.8 1.0 Normal World Health Organization criteria for BMD impression classify patients as: Normal (T-score at or above -1.0), Osteopenia (T-score between -1.0 and -2.5), or Osteoporosis (T-score at or below -2.5). 10-year Fracture Risk(1): Major Osteoporotic Fracture 12% Hip Fracture 2.7% Reported Risk Factors: [place] (), Neck BMD=0.657, BMI=26.8 (1) FRAX(R) Version 3.08. Fracture probability calculated for an untreated patient. Fracture probability may be lower if the patient has received treatment. Clinical Information Provided by Patient: Has used the following medications: Vitamin D, Calcium Has the following medical conditions: Hysterectomy Patient maximum height was 60 Menopause Age: 45 No regular weight bearing exercise Drinks caffeinated beverages Onset of menses at age 12 Number of children 2 Impression: The patient has low bone mass, based on the Left Femoral Neck T-score. The patient has an estimated ten-year risk of hip fracture of 2.7% and an estimated ten-year risk of major fracture of 12%, based on the WHO FRAX algorithm. Discussion: BONE DENSITY IS LOW AT ONE OR MORE SKELETAL SITES. This patient's lowest T-score is low at one or more skeletal sites. It meets the World Health Organization's (WHO) criteria for ?low bone mass? (T-score between -1.0 and -2.5). The patient's 10-year risk of fracture as calculated by FRAX is less than the threshold where pharmacological therapy is recommended by the National Osteoporosis Foundation (NOF). However, all treatment decisions require clinical judgment and consideration of individual patient factors, including patient preferences, comorbidities, previous drug use, risk factors not captured in the FRAX model (e.g., frailty, falls, vitamin D deficiency, increased bone turnover, interval significant decline in bone density) and possible under or overestimation of fracture risk by FRAX. The patient should follow a healthful lifestyle (good nutrition with adequate calcium and vitamin D, and appropriate weight-bearing exercise). Follow-Up: Consider repeating this study in 2 to 3 years to reassess this patient's status, or sooner i
== END ==
PROVIDERS: PCP Registered Nurse; Visit Provider Registered Nurse
DX: Z12.31 Encounter for screening mammogram for malignant neoplasm of breast (principal); Z78.0 Asymptomatic menopausal state; R92.8 Other abnormal and inconclusive findings on diagnostic imaging of breast; M85.852 Other specified disorders of bone density and structure, left thigh; M85.851 Other specified disorders of bone density and structure, right thigh
CPT/HCPCS: 77063; 77067; 77080

== ENCOUNTER → 2020-12-01 09:29 | Outpatient (CLI) | payer MEDICARE, SELFPAY ==
--- NOTE | ~2020-12-01 | MMUS_ITS ---
EXAMINATION: MM diagnostic bar RT w ismael, US breast RT limited HISTORY: Right breast asymmetry on screening mammogram TECHNIQUE: Additional 3-D tomosynthesis images of the right breast were performed and synthetic 2-D i mages were generated. CAD analysis was submitted and interpreted. High resolution limited right breas t ultrasound was performed. COMPARISON: 10/04/2020, 03/15/2019 BREAST PARENCHYMAL COMPOSITION: There are scattered areas of fibroglandular density. FINDINGS: MAMMOGRAPHIC FINDINGS: A subtle asymmetry in the outer right breast has an appearance stable to the 2019 comparison with spo t compression. There has been no suspicious interval change. No suspicious mass, calcification or arc hitectural distortion are identified. ULTRASOUND: There is no evidence of focal abnormal solid or cystic lesion in the vicinity of the mammographic fin ding in question. IMPRESSION: 1. No mammographic or sonographic evidence of malignancy. 2. Recommend routine screening mammography in one year. BI-RADS Category 2: Benign finding(s). Reviewed, dictated and finalized at location A. HATCHERY SUPERVISOR IMPRESSION: 1. No mammographic or sonographic evidence of malignancy. 2. Recommend routine screening mammography in one year. BI-RADS Category 2: Benign finding(s).
== END ==
PROVIDERS: PCP Registered Nurse; Visit Provider Registered Nurse
DX: R92.8 Other abnormal and inconclusive findings on diagnostic imaging of breast (principal)
CPT/HCPCS: 76642; 77061; 77065; G0279